=== PATIENT | male | born 1965 | race Hispanic/Latino ===

== ENCOUNTER 2017-02-18 10:38 | Emergency (ER) | payer SELFPAY ==
[~2017-02-18 10:38] MED LIST: ASPI-555 PO
== END 2017-02-18 11:53 | disposition home or self-care (01) ==
LOC: EDH 10:38
DX: R10.32 Left lower quadrant pain (principal); I10 Essential (primary) hypertension; E11.9 Type 2 diabetes mellitus without complications; Z86.73 Personal history of transient ischemic attack (TIA), and cerebral infarction without residual deficits; Z72.0 Tobacco use
CPT/HCPCS: 99281